=== PATIENT | female | born 1970 | race African-American/Black ===

== ENCOUNTER 2017-09-25 16:41 | Emergency (ER) | payer MEDICAID ==
[~2017-09-25] VITALS: Ht 165.1 cm; Wt 89.0 kg
[2017-09-25] MEDS ORDERED: CYCLOBENZAPRINE 10MG TABLET PO ONE (23:30)
[2017-09-25] MEDS ORDERED: IBUPROFEN 800MG TABLET PO ONE (23:30)
[2017-09-26 02:19] LABS: CHLORIDE 111 mEq/L (98-107)
[2017-09-26 02:26] LABS: BASOPHILS % 0.4 % (0.0-2.0); EOSINOPHILS % 9.3 % (0.0-5.0); HEMATOCRIT. 29.3 % (36.0-48.0); HEMOGLOBIN. 9.7 g/dL (12.0-16.0); LYMPHOCYTES % 32.5 % (20.0-50.0); MEAN CORPUSCULAR HEMOGLOBIN 31.6 pg (28.0-32.0); MEAN CORPUSCULAR VOLUME 95.1 fL (81.0-99.0); MEAN PLATELET VOLUME 8.4 fl (7.4-10.4); MONOCYTES % 7.1 % (2.0-8.0); NEUTROPHILS % 50.7 % (40.0-76.0); PLATELET 352 x1000/uL (130-400); RED BLOOD CELL COUNT 3.08 mill/uL (4.2-5.4); RED CELL DISTRIBUTION WIDTH 16.4 % (11.6-14.6)
[2017-09-26 02:51] LABS: CLARITY URINE CLEAR (CLEAR); COLOR URINE YELLOW (YELLOW); KETONES URINE TRACE (NEGATIVE); LEUKOCYTE ESTERASE URINE NEGATIVE (NEGATIVE); NITRITE URINE NEGATIVE (NEGATIVE); OCCULT BLOOD URINE NEGATIVE (NEGATIVE); PROTEIN URINE NEGATIVE (NEGATIVE); SPECIFIC GRAVITY URINE 1.007 (1.005-1.030); UROBILINOGEN URINE 0.2 E.U./dL (0.2-1.0)
[2017-09-26 03:54] VITALS: BP 122/76
== END 2017-09-26 04:02 | disposition home or self-care (01) ==
LOC: ER 21:00
DX: M54.5 Low back pain (principal); R60.0 Localized edema; D64.9 Anemia, unspecified; Z98.51 Tubal ligation status
CPT/HCPCS: 36415; 71045; 80053; 81003; 81025; 83880; 85025; 93005; 93970; 99285; Z7610

== ENCOUNTER 2017-11-20 14:06 | Emergency (ER) | payer MEDICAID ==
[~2017-11-20] VITALS: Ht 165.1 cm; Wt 90.0 kg
[2017-11-20] MEDS ORDERED: SODIUM CHLORIDE 0.9% 1,000 ML IV ONE (14:21)
[2017-11-20 16:23] LABS: CHLORIDE 112 mEq/L (98-107)
[2017-11-20 17:00] LABS: CLARITY URINE CLEAR (CLEAR); COLOR URINE YELLOW (YELLOW); KETONES URINE NEGATIVE (NEGATIVE); LEUKOCYTE ESTERASE URINE NEGATIVE (NEGATIVE); NITRITE URINE NEGATIVE (NEGATIVE); OCCULT BLOOD URINE NEGATIVE (NEGATIVE); PH URINE 6.5 (4.5-8.0); PROTEIN URINE NEGATIVE (NEGATIVE); SPECIFIC GRAVITY URINE 1.009 (1.005-1.030); UROBILINOGEN URINE 0.2 E.U./dL (0.2-1.0)
[2017-11-20] MEDS ORDERED: ACETAMINOPHEN WITH CODEINE 300/30MG TABLET PO STA (17:11)
[2017-11-20 18:45] LABS: BASOPHILS % 0.5 % (0.0-2.0); EOSINOPHILS % 3.2 % (0.0-5.0); HEMATOCRIT. 34.1 % (36.0-48.0); HEMOGLOBIN. 11.3 g/dL (12.0-16.0); LYMPHOCYTES % 19.8 % (20.0-50.0); MEAN CORPUSCULAR HEMOGLOBIN 31.6 pg (28.0-32.0); MEAN CORPUSCULAR VOLUME 95.1 fL (81.0-99.0); MEAN PLATELET VOLUME 8.8 fl (7.4-10.4); MONOCYTES % 5.6 % (2.0-8.0); NEUTROPHILS % 70.9 % (40.0-76.0); PLATELET 334 x1000/uL (130-400); RED BLOOD CELL COUNT 3.58 mill/uL (4.2-5.4); RED CELL DISTRIBUTION WIDTH 17.3 % (11.6-14.6)
[2017-11-20 20:23] VITALS: BP 128/75
== END 2017-11-20 20:27 | disposition home or self-care (01) ==
LOC: ER 14:15
DX: R55 Syncope and collapse (principal); S80.212A Abrasion, left knee, initial encounter; R03.0 Elevated blood-pressure reading, without diagnosis of hypertension; Z87.828 Personal history of other (healed) physical injury and trauma; X58.XXXA Exposure to other specified factors, initial encounter; Y93.89 Activity, other specified; Y92.018 Other place in single-family (private) house as the place of occurrence of the external cause
CPT/HCPCS: 36415; 70450; 71045; 80053; 81003; 81025; 85025; 93005; 96360; 96361; 99285; J7030; Z7610

== ENCOUNTER 2018-10-15 20:52 | Emergency (ER) | payer MEDICAID ==
[~2018-10-15] VITALS: Ht 165.1 cm; Wt 93.0 kg
[2018-10-16] MEDS ORDERED: ACETAMINOPHEN 325MG TABLET PO ONE
[2018-10-16] MEDS ORDERED: MECLIZINE 25MG TABLET PO ONE
[2018-10-16 01:41] VITALS: BP 117/70
== END 2018-10-16 01:42 | disposition home or self-care (01) ==
LOC: ER 20:52
DX: R51 Headache (principal); R42 Dizziness and giddiness; Z98.51 Tubal ligation status; Z96.659 Presence of unspecified artificial knee joint
CPT/HCPCS: 70450; 81025; 99284; J8597

== ENCOUNTER 2019-04-02 14:57 | Emergency (ER) | payer MEDICAID ==
[~2019-04-02] VITALS: Ht 165.1 cm; Wt 100.0 kg
[2019-04-02] MEDS ORDERED: KETOROLAC 15MG/ML VIAL IM ONE (19:00)
[2019-04-02 19:30] VITALS: BP 134/75
== END 2019-04-02 19:34 | disposition home or self-care (01) ==
LOC: ER 15:06
DX: G44.209 Tension-type headache, unspecified, not intractable (principal); Z98.51 Tubal ligation status; Z96.659 Presence of unspecified artificial knee joint
CPT/HCPCS: 96372; 99283; J1885

== ENCOUNTER 2019-05-01 11:12 | Emergency (ER) | payer MEDICAID ==
[~2019-05-01] VITALS: Ht 165.1 cm; Wt 75.0 kg
[2019-05-01] MEDS ORDERED: PREDNISONE 20MG TABLET PO ONE (12:15)
[2019-05-01] MEDS ORDERED: METHOCARBAMOL 500MG TABLET PO ONE (12:15)
[2019-05-01] MEDS ORDERED: PREDNISONE 20MG TABLET PO NR (12:30)
[2019-05-01 13:03] VITALS: BP 120/74
== END 2019-05-01 13:03 | disposition home or self-care (01) ==
LOC: ER 11:12
DX: R21 Rash and other nonspecific skin eruption (principal); R03.0 Elevated blood-pressure reading, without diagnosis of hypertension
CPT/HCPCS: 99283; J7512

== ENCOUNTER 2019-05-09 14:07 | Inpatient (IN) | payer MEDICAID ==
[~2019-05-09] VITALS: Ht 165.1 cm; Wt 97.1 kg
[2019-05-09] MEDS ORDERED: SODIUM CHLORIDE 0.9% 1000ML BAG (SEPSIS BOLUS) IV ONE (20:45)
[2019-05-09 22:02] LABS: BASOPHILS % 0.4 % (0.0-2.0); EOSINOPHILS % 3.2 % (0.0-5.0); HEMOGLOBIN. 12.6 g/dL (12.0-16.0); LYMPHOCYTES % 27.4 % (20.0-50.0); MEAN CORPUSCULAR HEMOGLOBIN 33.3 pg (28.0-32.0); MEAN CORPUSCULAR VOLUME 98.2 fL (81.0-99.0); MEAN PLATELET VOLUME 8.3 fl (7.4-10.4); MONOCYTES % 5.9 % (2.0-8.0); NEUTROPHILS % 63.1 % (40.0-76.0); PLATELET 352 x1000/uL (130-400); RED BLOOD CELL COUNT 3.77 mill/uL (4.2-5.4); RED CELL DISTRIBUTION WIDTH 15.4 % (11.6-14.6)
[2019-05-09 22:07] LABS: PROTHROMBIN TIME 10.4 sec (9.6-11.0)
[2019-05-09 22:11] LABS: CHLORIDE 108 mEq/L (98-107)
[2019-05-09 23:25] LABS: CLARITY URINE CLOUDY (CLEAR); COLOR URINE YELLOW (YELLOW); KETONES URINE NEGATIVE (NEGATIVE); LEUKOCYTE ESTERASE URINE TRACE (NEGATIVE); NITRITE URINE NEGATIVE (NEGATIVE); OCCULT BLOOD URINE NEGATIVE (NEGATIVE); PH URINE 5.5 (4.5-8.0); PROTEIN URINE NEGATIVE (NEGATIVE); SPECIFIC GRAVITY URINE 1.019 (1.005-1.030); UROBILINOGEN URINE 0.2 E.U./dL (0.2-1.0)
[2019-05-10] MEDS ORDERED: CEFTRIAXONE 1 G PREMIX 50 ML IV SCH ×3 (00:30→21:00)
[2019-05-10] MEDS ORDERED: ACETAMINOPHEN 325MG TABLET PO PRN (09:30)
[2019-05-10] MEDS ORDERED: KETOROLAC 30MG/ML VIAL IV PRN (09:30)
[2019-05-10] MEDS ORDERED: ONDANSETRON HCL 4MG/2ML INJ IV PRN (09:30)
[2019-05-10 16:38] VITALS: BP 112/72
[2019-05-10 16:45] VITALS: BP 112/72
[2019-05-10] MEDS ORDERED: POLYVINYL ALCOHOL OPHTH DROPS 15ML EACHEYE PRN (19:00)
[2019-05-10] MEDS ORDERED: ERGO400T7 PO (19:50)
[2019-05-10] MEDS ORDERED: GABA-531 PO (19:51)
[2019-05-10] MEDS ORDERED: DULO30CA52 PO (19:51)
[2019-05-10 20:00] VITALS: BP 127/81
[2019-05-10 21:00] LABS: ETHANOL BLOOD < 10 mg/dL
[2019-05-10 21:06] LABS: T4 FREE 1.02 ng/dL (0.76-1.46)
[2019-05-10 21:12] LABS: FOLIC ACID (FOLATE) SERUM >20 ng/mL ng/mL (>5.38)
[2019-05-10 21:23] LABS: VITAMIN B12 SERUM 732 pg/mL (211-911)
[2019-05-10] MEDS ORDERED: CEFTRIAXONE 1,000 MG in DEXTROSE 5% WATER 50 ML IV SCH (21:30)
[2019-05-11] VITALS (7 sets, daily range): BP systolic 103–133; BP diastolic 55–82
[2019-05-11 07:34] LABS: BASOPHILS % 0.4 % (0.0-2.0); HEMATOCRIT. 32.6 % (36.0-48.0); HEMOGLOBIN. 10.9 g/dL (12.0-16.0); MEAN CORPUSCULAR HEMOGLOBIN 32.7 pg (28.0-32.0); MEAN CORPUSCULAR VOLUME 97.7 fL (81.0-99.0); MEAN PLATELET VOLUME 8.4 fl (7.4-10.4); MONOCYTES % 10.2 % (2.0-8.0); NEUTROPHILS % 53.4 % (40.0-76.0); PLATELET 331 x1000/uL (130-400); RED BLOOD CELL COUNT 3.34 mill/uL (4.2-5.4); RED CELL DISTRIBUTION WIDTH 15.2 % (11.6-14.6)
[2019-05-11 07:48] LABS: CHLORIDE 112 mEq/L (98-107)
[2019-05-11] MEDS: GABAPENTIN 300MG CAPSULE PO SCH ×3 (08:53→18:09)
[2019-05-11] MEDS ORDERED: DULOXETINE HCL 30MG DR CAPSULE PO SCH (09:00)
[2019-05-11] MEDS ORDERED: LIDOCAINE HCL 1% 20ML VIAL (Pyxis) INJ ONE (09:12)
[2019-05-11] MEDS ORDERED: IOHEXOL-350 100 ML BOTTLE ONE (10:00)
[2019-05-11] MEDS ORDERED: METHYLPREDNISOLONE SOD SUCC 40 MG/ML VIAL IV SCH (11:00)
[2019-05-11] MEDS ORDERED: CEFTRIAXONE 1 G PREMIX 50 ML IV SCH (21:30)
== END 2019-05-11 20:45 | disposition home or self-care (01) | DRG 346 ==
LOC: ER 14:07 → EDBEDREQTM 20:41 → EDBEDREQ 22:57 → 7WST 23:07 → EDBEDREQ 23:08 → EDBEDREQTM 23:08 → ENRESERV 05-10 15:48 → 7WST 05-10 18:12
PROVIDERS: ADMIT Internal Medicine; ATTEND Internal Medicine
PROC: 02HV33Z Insertion of Infusion Device into Superior Vena Cava, Percutaneous Approach (ICD-10-PCS; principal; 2019-05-11)
PROC: B5181ZA Fluoroscopy of Superior Vena Cava using Low Osmolar Contrast, Guidance (ICD-10-PCS; 2019-05-11)
PROC: B548ZZA Ultrasonography of Superior Vena Cava, Guidance (ICD-10-PCS; 2019-05-11)
DX: M32.9 Systemic lupus erythematosus, unspecified (principal); G92 Toxic encephalopathy; E87.8 Other disorders of electrolyte and fluid balance, not elsewhere classified; G90.8 Other disorders of autonomic nervous system; G93.89 Other specified disorders of brain; Z96.659 Presence of unspecified artificial knee joint; E55.9 Vitamin D deficiency, unspecified; M19.90 Unspecified osteoarthritis, unspecified site; M79.7 Fibromyalgia; Z79.899 Other long term (current) drug therapy; Z98.51 Tubal ligation status; Z91.14 Patient's other noncompliance with medication regimen; Z88.8 Allergy status to other drugs, medicaments and biological substances
CPT/HCPCS: 36415; 36573; 70496; 71045; 76937; 80048; 80053; 80307; 80320; 81003; 82140; 82607; 82746; 83036; 83605; 83880; 84145; 84439; 84443; 84481; 84484; 85025; 85651; 86592; 86703; 93005; 93970; 99285; C1725; J0696; J1885; J2920; J3490; J7030; J7060; Q9967; G0480